=== PATIENT | male | born 1975 | race Caucasian/White ===

== ENCOUNTER 2017-08-05 00:15 | Inpatient (IN) | payer OTHER ==
[~2017-08-05] VITALS: Ht 177.8 cm; Wt 93.8 kg
[2017-08-05] VITALS (7 sets, daily range): BP systolic 106–185; BP diastolic 57–122
--- NOTE | ~2017-08-05 | 2DMMODE ---
[facility] [address] [place] [address] 2 D/M-MODE ECHOCARDIOGRAM Name: DANITZAWILFREDO JEREZ Room #: 200-I ADM IN [facility]#: [id number] Admission: 08/05/17 Attend Phys: Tomy Cowart MD Discharge: Date of : 73 Date of Service: 08/05/17 1244 Report #: [id number] THIS REPORT FOR: //name// APPROVED REPORT Study performed: 08/05/2017 10:22:29 EXAM: Comprehensive 2D, Doppler, and color-flow Echocardiogram Patient Location: ER Room #: 4 Status: routine BSA: 2.04 BP: 134/98 mmHg Other Information Study Quality: Good Indications Dyspnea Chest Pain Hypertension/HDD 2D Dimensions RVDd: 38.03 mm LVEF(%): 31.90 (>50%) IVSd: 14.69 (7-11mm) LVOT Diam: 17.78 (18-24mm) LVDd: 62.69 mm PWd: 13.66 (7-11mm) Ascending Ao: 37.34 (22-36mm) LVDs: 53.03 (25-40mm) Aortic Root: 32.52 mm IVC: 28.00 mm Stallworth's LVEF: 31.90 % Volumes Left Atrial Volume (Systole) Single Plane 4CH: 44.45 mL LA ESV Index: 32.00 mL/m2 Aortic Valve AoV Peak Perfecto.: 0.84 m/s AO Peak Gr.: 2.84 mmHg LVOT Max P.40 mmHg LVOT Max V: 0.59 m/s HARPER Vmax: 1.74 cm2 Mitral Valve E/A Ratio: 2.0 [facility] [place] [address] 2 D/M-MODE ECHOCARDIOGRAM Name: DANITZAWILFREDO JEREZ Room #: 200-I [facility] IN [facility]#: [id number] Admission: 08/05/17 Attend Phys: Tomy Cowart MD Discharge: Date of : 73 Date of Service: 08/05/17 1244 Report #: [id number] MV Decel. Time: 137.95 ms MV E Max Perfecto.: 1.35 m/s MV A Perfecto.: 0.68 m/s MV PHT: 40.01 ms IVRT: 101.50 ms Pulmonary Valve PV Peak Perfecto.: 0.62 m/s PV Peak Gr.: 1.53 mmHg Pulmonary Vein P Vein S: 0.48 m/s P Vein A: 0.18 m/s P Vein D: 0.45 m/s P Vein A Dur.: 110.7 msec P Vein S/D Ratio: 1.07 Tricuspid Valve TR Peak Perfecto.: 2.01 m/s RAP Estimate: 15.00 mmHg TR Peak Gr.: 16.24 mmHg Left Ventricle Left ventricle is dilated. Paradoxical septal motion. Mild to moderate concentric left ventricular hypertrophy. Left ventricular systolic function is severely decreased. LVEF 25%. Severe diastolic dysfunction is present (restrictive filling). Right Ventricle Right ventricle is dilated. Right ventricle is hypokinetic. Atria Left atrium is mildly dilated. Right atrium is severely dilated. Aortic Valve The aortic valve is trileaflet, mildly sclerotic Mild aortic regurgitation. There is no aortic valvular stenosis. Mitral Valve Mitral valve leaflets are mildly thickened. Severe mitral regurgitation No evidence of mitral valve stenosis. Tricuspid Valve Incomplete valvular coaptation. Severe tricuspid regurgitation. RVSP is underestimated by Doppler of TR jet. Pulmonic Valve The pulmonary valve is normal in structure. Mild pulmonic [facility] [address] [place] [address] 2 D/M-MODE ECHOCARDIOGRAM Name: DANITZA,WILFREDO SOLITARIO Room #: 200-I [facility] IN ..#: [id number] Admission: 08/05/17 Attend Phys: Tomy Cowart MD Discharge: Date of : 73 Date of Service: 08/05/17 1244 Report #: [id number] regurgitation. Great Vessels The aortic root is normal in size. The ascending aorta is mildly dilated at 3.7 cm. IVC is dilated and collapses <50% with inspiration. Pericardium There is no pericardial effusion. <Conclusion> Left ventricular systolic function is severely decreased. LVEF 25%. Severe diastolic dysfunction is present (restrictive filling). Left atrium is mildly dilated. Right atrium is severely dilated. The aortic valve is trileaflet, mildly sclerotic. No stenosis. Mild regurgitation. Mitral valve leaflets are mildly thickened. Severe mitral regurgitation Incomplete ticuspid leaflet coaptation with severe tricuspid insufficiency. There is no pericardial effusion. <ELECTRONICALLY SIGNED> By: Lane Ramey MD, FACC 08/05/[address] Ramey MD, FACC /INF
--- NOTE | ~2017-08-05 | EKG ---
[address] [address] ELECTROCARDIOGRAM REPORT Name: WILFREDO BOSCH Room #: 170-4 ADM IN M.R.#: [id number] Admission: 08/05/17 Attend Phys: Tomy Cowart MD Discharge: Date of : 73 Report #: [id number] THIS REPORT FOR: //name// [facility] ED Test Date: 2017-08-05 Test Time: 00:23:17 Pat Name: WILFREDO BOSCH Department: Room: 170 Gender: M Board Winder: MARIELY : 1975 Requested By: Patito Haney Order Number: [id number] MD: Lane Ramey Measurements Intervals [place] Rate: 120 P: 67 UT: 145 QRS: 46 QRSD: 97 T: 40 QT: 355 QTc: 502 Interpretive Statements Sinus tachycardia Left atrial enlargement Prolonged QT interval No previous ECG available for comparison Electronically Signed On 08-05-2017 10:12:[address]Rmey [email or web address] <ELECTRONICALLY SIGNED> By: Lane Ramey MD, FACC 08/05/[address]amey MD, FACC /EPI
[2017-08-05] MEDS ORDERED: LASIX 20 MG TAB20 MG PO (00:28)
[2017-08-05 00:52] LABS: ABSOLUTE NEUTROPHILS 4.7 thou/uL (1.4-8.2); BASOPHILS 0.9 % (0.0-2.0); EOSINOPHILS 2.7 % (0.0-3.0); HEMATOCRIT 41.4 % (42.0-52.0); HEMOGLOBIN 13.6 gm/dL (14.0-18.0); LYMPHOCYTES 28.9 % (24.0-44.0); MCH 30.2 pg (26.0-34.0); MCHC 32.9 g/dL (28.0-37.0); MCV 91.7 fL (80.0-100.0); MONOCYTES 10.1 % (1.0-8.0); PLATELET COUNT 172 thou/uL (150-400); POLYS 57.4 % (36.0-66.0); RBC 4.51 mil/uL (4.50-6.00); RDW 21.5 % (10.5-14.5); WBC 8.3 thou/uL (4.0-11.0)
[2017-08-05 00:58] LABS: MANUAL DIFF NO
[2017-08-05 01:12] LABS: ALBUMIN 3.2 g/dL (3.4-5.0); DIRECT BILIRUBIN 1.2 mg/dL (<0.1-0.3); TOTAL BILIRUBIN 2.4 mg/dL (<0.1-1.0)
[2017-08-05 01:25] LABS: CALCIUM 9.1 mg/dL (8.5-10.1); CREATININE 1.6 mg/dL (0.7-1.3); POTASSIUM 3.2 mmol/L (3.5-5.1)
[2017-08-05 01:34] LABS: TROPONIN-I 0.16 ng/mL (<0.06)
[2017-08-05 04:33] LABS: CHOLESTEROL 127 mg/dL (<200); HDL CHOLESTEROL 27 mg/dL (>40); LDL CHOLESTEROL 69 mg/dL (<100); TC:HDL 4.7 Ratio (Not establshd); TRIGLYCERIDE 156 mg/dL (<150); VLDL 31 mg/dL (<40)
[2017-08-05 04:34] LABS: SERUM ASSESSMENT Moderate Lipemia
[2017-08-05 04:46] LABS: AMP/METHAMP POSITIVE (Negative); BARBITURATES Negative (Negative); BENZODIAZEPINES Negative (Negative); COCAINE Negative (Negative); METHADONE Negative (Negative); OPIATES Negative (Negative); PCP Negative (Negative); THC Negative (Negative)
[2017-08-05 13:32] LABS: INR 1.2; PROTIME 12.1 Seconds (9.3-11.4)
[2017-08-05 13:34] LABS: % SATURATION 21 % (20-39); IRON 90 ug/dL (65-175); TIBC 422 ug/dL (250-450); UIBC 332 ug/dL
[2017-08-05 17:09] LABS: IgG 1124 mg/dL (700-1600)
[2017-08-05 18:10] LABS: HEPATITIS C VIRUS AB <0.1 (0.0-0.9)
[2017-08-06 03:31] LABS: HEMATOCRIT 43.6 % (42.0-52.0); MCH 30.2 pg (26.0-34.0); MCHC 32.1 g/dL (28.0-37.0); MCV 94.3 fL (80.0-100.0); RBC 4.62 mil/uL (4.50-6.00); RDW 21.9 % (10.5-14.5); WBC 7.6 thou/uL (4.0-11.0)
[2017-08-06 03:40] LABS: CREATININE 1.7 mg/dL (0.7-1.3); POTASSIUM 3.6 mmol/L (3.5-5.1)
[2017-08-06 04:48] VITALS: BP 135/100
[2017-08-06 07:30] VITALS: BP 133/92
[2017-08-06] MEDS ORDERED: CARVEDILOL12.5 MG PO (10:15)
[2017-08-06] MEDS ORDERED: COZAAR 25 MG TA25 M1 PO (10:15)
[2017-08-06] MEDS ORDERED: LASIX 40 MG TAB40 M2 PO (10:15)
[2017-08-06] MEDS ORDERED: ASPIR 8181 MG PO (10:15)
[2017-08-06] MEDS ORDERED: POTASSIUM20 PO (10:16)
[2017-08-06 11:45] VITALS: BP 114/83
[2017-08-06 16:00] VITALS: BP 114/83
[2017-08-07 17:08] LABS: CERULOPLASMIN 42.7 mg/dL (16.0-31.0)
== END 2017-08-06 18:00 | disposition home or self-care (01) | DRG 304 ==
LOC: ER 00:15 → EROBS 03:02 → 2N 12:05
PROVIDERS: Emergency Medicine; Nurse Practitioner; Nurse Practitioner Family
DX: I16.0 Hypertensive urgency (principal); I50.23 Acute on chronic systolic (congestive) heart failure; N17.9 Acute kidney failure, unspecified; R18.8 Other ascites; E87.6 Hypokalemia; R79.1 Abnormal coagulation profile; R74.0 Nonspecific elevation of levels of transaminase and lactic acid dehydrogenase [LDH]; F17.210 Nicotine dependence, cigarettes, uncomplicated; E03.9 Hypothyroidism, unspecified; F10.10 Alcohol abuse, uncomplicated; E78.5 Hyperlipidemia, unspecified; F15.10 Other stimulant abuse, uncomplicated; K21.9 Gastro-esophageal reflux disease without esophagitis; I11.0 Hypertensive heart disease with heart failure; I08.0 Rheumatic disorders of both mitral and aortic valves; Z23 Encounter for immunization; Z71.6 Tobacco abuse counseling; Z71.41 Alcohol abuse counseling and surveillance of alcoholic; Z71.51 Drug abuse counseling and surveillance of drug abuser; Z87.01 Personal history of pneumonia (recurrent); Z88.0 Allergy status to penicillin; Z87.11 Personal history of peptic ulcer disease; Z82.49 Family history of ischemic heart disease and other diseases of the circulatory system
CPT/HCPCS: 10081

== ENCOUNTER → 2018-03-13 | Outpatient (CLI) | payer OTHER ==
[~2018-03-13] VITALS: Ht 177.8 cm; Wt 97.5 kg
[~2018-03-13] MED LIST: ALDACTONE25 MG PO; ASPIR 8181 MG PO; CARVEDILOL12.5 MG PO; COREG25 MG PO; COZAAR 25 MG TA25 M1 PO; COZAAR 50 MG TA50 M2 PO; CRESTOR20 MG PO; LASIX 20 MG TAB20 MG PO; LASIX 40 MG TAB40 M2 PO; POTASSIUM20 PO
--- NOTE | ~2018-03-13 | EKG ---
[address] [place] [address] ELECTROCARDIOGRAM REPORT Name: WILFREDO BOSCH Room #: REG [facility]#: [id number] Admission: 03/13/18 Attend Phys: Michael Rogers MD, Discharge: Date of : 73 Report #: [id number] THIS REPORT FOR: //name// [facility] Test Date: 2018-03-13 Test Time: 07:59:50 Pat Name: WILFREDO BOSCH Department: Room: Gender: Surveillance Officer: Lavelle BRANHAM : 1975 Requested By: Michael Rogers Order Number: [id number] MD: Lane Ramey Measurements Intervals [place] Rate: 58 P: 36 CO: 190 QRS: 10 QRSD: 100 T: 75 QT: 436 QTc: 429 Interpretive Statements Sinus rhythm Normal tracing Compared to ECG 08/05/2017 00:23:17 Sinus tachycardia no longer present Prolonged QT interval no longer present Electronically Signed On 03-13-2018 8:18:[address]amey [email or web address] <ELECTRONICALLY SIGNED> By: Lane Ramey MD, [facility] 03/13/[address] MD, [facility] /EPI
--- NOTE | ~2018-03-13 | CATHLAB ---
[facility] [address] [place] [address] INVASIVE PROCEDURE REPORT Name: WILFREDO BOSCH Room #: REG [facility]#: [id number] Admission: 03/13/18 Attend Phys: Michael Rogers, Discharge: Date of : 73 Date of Service: 03/14/181909 Report #: [id number] THIS REPORT FOR: //name// APPROVED REPORT Study performed: 03/13/2018 07:52:22 Patient Details Patient Status: Out-Patient Room #: The patient is a 42 year-old male Event Personnel Michael Rogers Expressive Therapist, Mónica Glez RTR, Ld Kelsey Ceola RN RN, Nakita Flores Kline, Tiffany RN crm marketing executive Performed Art Access - R femoral artery* Daniel Access - R femoral vein [id number] Initial Mod Sed Same Phys/QHP Gr5y [id number] Mod Sed Same Phys/QHP Ea [id number] Right and Left Heart Cath w/or w/o Coronarie [id number] [facility] Aortogram Abdominal Peripheral Angio [id number] Hemostasis w/ Mynx Indication Cardiomyopathy Procedure Narrative The patient was brought electively to the Cardiac Catheterization Laboratory and was prepped and draped in a sterile manner. The was infiltrated with 1% Lidocaine subcutaneous anesthesia. A PINNACLE 6FR Sheath #[id number] sheath was inserted into the RFA^. Coronary angiography was performed using coronary diagnostic catheters. The right coronary system was accessed and visualized with a JR 4 catheter. The left coronary system was accessed and visualized with a JL 4 catheter. The left ventricle was accessed and visualized with a Pigtail catheter. Left ventriculogram was performed in MALLOY projection. An aortogram of the abdominal aorta was performed. Closure device was deployed with a 6 Fr Mynx. The patient tolerated the procedure well and there were no complications associated with the procedure. There was no hematoma. Intraoperative Conscious Sedation Sedation start time: 08:54 Case end Time: 09:24 Fentanyl 50 mcg Versed [address] [address] INVASIVE PROCEDURE REPORT Name: WILFREDO BOSCH [id number] Admission: 03/13/18 Attend Phys: Michael Rogers, Discharge: Date of : 73 Date of Service: 03/14/18 1910 Report #: [id number] Fluoro Time: 2.54 minutes Dose: DAP 4482.20 cGycm2 449 mGy Contrast Type and Amount: Omnipaque 120 ml Hemodynamics The right atrial mean pressure is 14 mmHg. The right ventricular pressure is 38/6 mmHg. The pulmonary artery pressure is 42/14 mmHg with a mean of 27 mmHg. The mean pulmonary capillary wedge pressure is 16 mmHg. The aortic pressure is 182/104 mmHg with a mean of 127 mmHg. The left ventricular pressure is 169/12 mmHg with a mean of mmHg. The left ventricular end diastolic pressure is 26 mmHg. The cardiac output using thermo method is 6.43 L/min. The cardiac index using thermo method is 3.00 L/min/m2. Conclusion #1 mild left ventricular dilatation with mild global hypokinesis EF 40% to 45% range #2 left main moderate size giving rise to LAD and circumflex no occlusive disease #3 LAD bifurcating LAD with mild distal disease #4 circumflex OM is nondominant but moderate distribution with no irregularity or occlusive disease #5 dominant right coronary artery with no significant disease #6 selective bilateral renal arteries minimal ostial disease #7 successful right heart catheterization with cardiac output by thermodilution see above hemodynamics Recommendations and plan continue aggressive risk factor modification no indication for coronary intervention. The global hypokinesis of the left ventricle is markedly improved from previous echo exams Continue relative fluid and sodium restriction continue current medical regimen. Follow-up is arranged rate I expect further improvement in LV function. No indication for implantable defibrillator currently <ELECTRONICALLY SIGNED> By: Michael Rogers MD, FACC 03/14/181909 09 09 Michael Rogers MD, FACC /INF
[2018-03-13 07:59] LABS: HEMATOCRIT 43.7 % (42.0-52.0); HEMOGLOBIN 15.2 gm/dL (14.0-18.0); MCH 33.5 pg (26.0-34.0); MCHC 34.9 g/dL (28.0-37.0); MCV 95.9 fL (80.0-100.0); RBC 4.55 mil/uL (4.50-6.00); RDW 12.7 % (10.5-14.5); WBC 6.8 thou/uL (4.0-11.0)
[2018-03-13 08:03] VITALS: BP 153/94
[2018-03-13 08:06] LABS: CALCIUM 9.2 mg/dL (8.5-10.1); CREATININE 1.3 mg/dL (0.7-1.3); POTASSIUM 3.9 mmol/L (3.5-5.1)
== END | disposition home or self-care (01) ==
LOC: CATH 02-20 07:44
PROVIDERS: Internal Medicine Cardiovascular Disease
DX: I25.10 Atherosclerotic heart disease of native coronary artery without angina pectoris (principal); I10 Essential (primary) hypertension; E78.5 Hyperlipidemia, unspecified; E03.9 Hypothyroidism, unspecified; K21.9 Gastro-esophageal reflux disease without esophagitis; Z87.891 Personal history of nicotine dependence; Z88.0 Allergy status to penicillin; Z79.82 Long term (current) use of aspirin; Z79.899 Other long term (current) drug therapy

== ENCOUNTER → 2020-09-01 | Outpatient (CLI) | payer OTHER | LOC: SJCVCIMAG 12:48 | PROVIDERS: ATTEND Internal Medicine Cardiovascular Disease | DX: I65.23 Occlusion and stenosis of bilateral carotid arteries (principal); Z87.891 Personal history of nicotine dependence ==